=== PATIENT | female | born 1950 | race American Indian/Alaskan Native ===

== ENCOUNTER 2017-09-08 09:32 | Emergency (ER) | payer MEDICARE, BC ==
[2017-09-08 11:04] LABS: BASO % 0.5 % (0.0-2.0); EOS # 0.2 K/uL (0.0-0.7); EOS % 2.6 % (0.0-4.0); HEMATOCRIT 40.2 % (34.0-47.0); LYMPH # 2.4 K/uL (1.0-4.3); LYMPH % 31.8 % (20.0-40.0); MEAN CELL VOLUME 79.3 fL (81.0-99.0); MEAN CORPUSCULAR HEMOGLOBIN 26.1 pg (27.0-31.0); MEAN CORPUSCULAR HGB CONC 32.9 g/dL (33.0-37.0); MONO # 0.7 K/uL (0.0-0.8); MONO % 9.2 % (0.0-10.0); NRBC % 0.2 % (0.0-2.0); RED CELL DISTRIBUTION WIDTH 13.7 % (11.5-14.5); WHITE BLOOD COUNT 7.5 K/uL (4.8-10.8)
[2017-09-08 11:18] LABS: ALB/GLOB RATIO 1.4 (1.0-2.1); ALKALINE PHOSPHATASE 68 U/L (38-126); ALT/SGPT 44 U/L (9-52); AST/SGOT 29 U/L (14-36); BILIRUBIN,TOTAL 0.8 mg/dL (0.2-1.3); BLOOD UREA NITROGEN 18 mg/dL (7-17); CARBON DIOXIDE 31 mmol/L (22-30); CHLORIDE 103 mmol/L (98-107); GFR AFRICAN-AMERICAN > 60; GLUCOSE,RANDOM 123 mg/dL (65-105); POTASSIUM 4.1 mmol/L (3.6-5.2); SODIUM 140 mmol/L (132-148); TOTAL PROTEIN 7.1 g/dL (6.3-8.3)
--- NOTE | 2017-09-08 11:49 | C.PDOC ---
History Of Present Illness 67yo female with history of hypertension, presents to ED requesting evaluation of her high blood pressure. She stats she noticed her blood pressure was elevated a couple days ago while she was at a store. She states today she took 1 out of her 3 blood pressure medications. Of note, patient also reports she has had a persistent dry cough for the past 2-3 days. She denies any fever, chest pain, shortness of breath, headache, blurry vision or double vision. No other complaints. Time Seen by Provider: 09/08/17 10:16 Chief Complaint (Nursing): Cough, Cold, Congestion History Per: Patient History/Exam Limitations: no limitations Onset/Duration Of Symptoms: Days Current Symptoms Are (Timing): Still Present Past Medical History Reviewed: Historical Data, Nursing Documentation, Vital Signs Vital Signs: Last Vital Signs Temp 98.6 F 09/08/17 12:26 Pulse 55 L 09/08/17 12:26 Resp 18 09/08/17 12:26 BP 165/81 H 09/08/17 12:26 Pulse Ox 99 09/08/17 12:26 - Medical History PMH: Arthritis, Diabetes, GERD, HTN, Hypercholesterolemia Surgical History: Appendectomy - [facility] Procedures OTHER SKIN & SUBQ I D (10/07/14) Family History: States: Unknown Family Hx - Social History Hx Tobacco Use: No Hx Alcohol Use: No Hx Substance Use: No - Immunization History Hx Tetanus Toxoid Vaccination: No Hx Influenza Vaccination: No Hx Pneumococcal Vaccination: No Review Of Systems Except As Marked, All Systems Reviewed And Found Negative. Constitutional: Negative for: Fever Eyes: Negative for: Vision Change Cardiovascular: Positive for: Other (elevated blood pressure). Negative for: Chest Pain Respiratory: Negative for: Shortness of Breath Neurological: Negative for: Headache Physical Exam - Physical Exam Appears: Non-toxic Skin: Normal Color Head: Atraumatic, Normacephalic Neck: Supple Cardiovascular: Rhythm Regular Respiratory: Normal Breath Sounds Gastrointestinal/Abdominal: Soft, No Tenderness Back: Normal Inspection Extremity: Normal ROM, Swelling (trace lower extremities edema, bilaterally.) Neurological/Psych: Oriented x3, Normal Speech, Normal Cognition ED Course And Treatment - Laboratory Results Result Diagrams: 09/08/17 10:59 09/08/17 10:59 ECG: Interpreted By Me, Viewed By Me ECG Rhythm: Sinus Rhythm Interpretation Of ECG: Normal axis, normal intervals. Rate From EC O2 Sat by Pulse Oximetry: 100 (RA) Pulse Ox Interpretation: Normal Medical Decision Making Medical Decision Making: Plan: -- Patient took the remaining 2 blood pressure medication, reports feeling better. Will re-evaluate later. -- Labs -- EKG -- CXR Disposition - Disposition Referrals: Tr Lyons MD [Staff Provider] - Disposition: HOME/ ROUTINE Disposition Time: 12:00 Condition: IMPROVED Additional Instructions: Thank you for letting us take care of you today. The emergency medical care you received today was directed at your acute symptoms. If you were prescribed any medication, please fill it and take as directed. It may take several days for your symptoms to resolve. Return to the Emergency Department if your symptoms worsen, do not improve, or if you have any other problems. Please contact your doctor or call one of the physicians/clinics you have been referred to that are listed on the Patient Visit Information form that is included in your discharge packet. Bring any paperwork you were given at discharge with you along with any medications you are taking to your follow up visit. Our treatment cannot replace ongoing medical care by a primary care provider (PCP) outside of the emergency department. Thank you for allowing the [facility] team to be part of your care today. Follow up with your doctor in 1-2 days for re-evaluation and management. Instructions: Hypertension (ED) Forms: [employer] (French) - Clinical Impression Clinical Impression: Hypertension - Scribe Statement The provider has reviewed the documentation as recorded by the Reggie Leung Provider Attestation: All medical record entries made by the Natalyaibalicia were at my direction and personally dictated by me. I have reviewed the chart and agree that the record accurately reflects my personal performance of the history, physical exam, medical decision making, and the department course for this patient. I have also personally directed, reviewed, and agree with the discharge instructions and disposition.
--- NOTE | 2017-09-08 11:57 | RAD ---
Chest x-ray two views History: Cough. Comparison: None available. Findings: Mild venous congestion. Tortuous ectatic aorta. Mild cardiomegaly. Degenerative changes in the spine and shoulders. Impression: Mild venous congestion. Tortuous ectatic aorta. Mild cardiomegaly.
[2017-09-08 12:26] VITALS: PULSE 55; RESP 18; TEMP 98.6
[2017-09-08 12:29] VITALS: BP 165/81
[2017-09-08 18:22] VITALS: O2SAT 100
--- NOTE | 2017-09-09 18:30 | CARD ---
APPROVED REPORT EKG Measurement Heart [id number] <Conclusion> Sinus bradycardia with sinus arrhythmia Nonspecific T wave abnormality Abnormal ECG
== END 2017-09-08 12:38 | disposition home or self-care (01) ==
LOC: C.ER 09:32
DX: I10 Essential (primary) hypertension (principal); E11.9 Type 2 diabetes mellitus without complications; E78.00 Pure hypercholesterolemia, unspecified

== ENCOUNTER 2018-03-28 12:31 | Emergency (ER) | payer MEDICARE, BC ==
[2018-03-28 12:46] VITALS: BMI 33.3
[2018-03-28 12:48] VITALS: BP 158/90; PULSE 64; RESP 18; TEMP 98.9; O2SAT 100
--- NOTE | 2018-03-28 13:50 | C.PDOC ---
History Of Present Illness 67 year old female presents to the ER with a complaint of left ankle pain intermittently for the past 1 week. Patient reports having a Hx of swollen ankles for quite some time now. Patient states it hurts when she tries to walk, she has been applying ice and taking tylenol with mild relief. Denies injury, fever. weakness, or numbness. Time Seen by Provider: 03/28/18 12:54 Chief Complaint (Nursing): Lower Extremity Problem/Injury History Per: Patient History/Exam Limitations: no limitations Onset/Duration Of Symptoms: Days, Intermittent Episodes Current Symptoms Are (Timing): Still Present Recent travel outside of the [place]: No Past Medical History Reviewed: Historical Data, Nursing Documentation, Vital Signs Vital Signs: Last Vital Signs Temp 98.9 F 03/28/18 12:46 Pulse 64 03/28/18 12:46 Resp 18 03/28/18 12:46 BP 158/90 H 03/28/18 12:46 Pulse Ox 100 03/28/18 14:33 - Medical History PMH: Arthritis, Diabetes, GERD, HTN Surgical History: Appendectomy - [facility] Procedures OTHER SKIN & SUBQ I D (10/07/14) Family History: States: Unknown Family Hx - Social History Hx Tobacco Use: No Hx Alcohol Use: No Hx Substance Use: No - Immunization History Hx Tetanus Toxoid Vaccination: No Hx Influenza Vaccination: No Hx Pneumococcal Vaccination: No Review Of Systems Constitutional: Negative for: Fever Musculoskeletal: Positive for: Foot Pain Neurological: Negative for: Weakness, Numbness Physical Exam - Physical Exam Appears: Non-toxic Skin: Normal Color, Warm, Dry Head: Atraumatic, Normacephalic Eye(s): bilateral: Normal Inspection Oral Mucosa: Moist Chest: Symmetrical, No Tenderness Cardiovascular: Rhythm Regular Respiratory: Normal Breath Sounds, No Rales, No Rhonchi, No Wheezing Gastrointestinal/Abdominal: Soft, No Tenderness Extremity: Normal ROM (x4), Pedal Edema (+1 bilateral), No Calf Tenderness, Capillary Refill (<2 seconds) Pulses: Left Dorsalis Pedis: Normal, Right Dorsalis Pedis: Normal Neurological/Psych: Oriented x3, Normal Speech, Normal Motor, Normal Sensation Gait: Steady ED Course And Treatment O2 Sat by Pulse Oximetry: 100 (Left ankle x-ray) Pulse Ox Interpretation: Normal - Other Rad Left ankle x-ray X-Ray: Interpreted by Me, Viewed By Me Interpretation: No acute fractures or dislocation. Medical Decision Making Medical Decision Making: Left ankle x-ray, results were negative. The patient has normal pulses and equal calf and ankle sizes. Patient is resting comfortably in the ER in no distress, she is ambulatory with steady gait, will discharge home with instructions to follow up with PMD. Disposition - Disposition Referrals: Podiatry Clinic [Outside] [facility] [Outside] Disposition: HOME/ ROUTINE Disposition Time: 14:27 Condition: STABLE Additional Instructions: Follow up with the medical doctor within 1-2 days without fail. Return if worsened. Prescriptions: Acetaminophen [Tylenol] 325 mg PO Q6 PRN #30 tab PRN Reason: Pain, Mild (1-3) Ibuprofen [Motrin] 1 tab PO TID PRN #30 tab PRN Reason: Pain Instructions: Ankle Sprain Forms: [employer] (Maltese) - Clinical Impression Clinical Impression: Ankle pain - PA / SOLID FIBER PASTER OPERATOR / Resident Statement MD/DO has reviewed & agrees with the documentation as recorded. - Scribe Statement The provider has reviewed the documentation as recorded by the Scribalicia Potter All medical record entries made by the Scribalicia were at my direction and personally dictated by me. I have reviewed the chart and agree that the record accurately reflects my personal performance of the history, physical exam, medical decision making, and the department course for this patient. I have also personally directed, reviewed, and agree with the discharge instructions and disposition.
--- NOTE | 2018-03-28 15:28 | RAD ---
PROCEDURE: Left Ankle Radiographs. HISTORY: ankle pain, medial aspect COMPARISON: Correlation made with radiographs of the right ankle dated FINDINGS: BONES: No evidence of acute displaced fracture nor dislocation. 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 SOFT TISSUES: Bilateral soft tissue swelling medial greater than lateral Mild vascular calcifications are also present. OTHER FINDINGS: None. IMPRESSION: No evidence of acute displaced fracture nor dislocation. Bilateral soft tissue swelling medial greater than lateral
== END 2018-03-28 14:42 | disposition home or self-care (01) ==
LOC: C.ER 12:31
DX: M25.572 Pain in left ankle and joints of left foot (principal)

== ENCOUNTER 2018-08-26 09:25 | Emergency (ER) | payer MEDICARE, BC ==
[2018-08-26 09:41] VITALS: BMI 31.6
[2018-08-26 09:48] VITALS: BP 148/85; TEMP 97.8
[2018-08-26 09:55] VITALS: PULSE 55; RESP 16; O2SAT 95
--- NOTE | 2018-08-26 09:57 | C.PDOC ---
History Of Present Illness 68 year old female presents to the ED for evaluation of back pain after she tripped and fell at home prior to arrival. Patient reports a contusion to her left posterior thorax. She denies pain at the time. Patient denies head injury, LOC, urinary/bowel incontinence, extremity numbness/weakness. Time Seen by Provider: 08/26/18 09:53 Chief Complaint (Nursing): Back Pain History Per: Patient History/Exam Limitations: no limitations Onset/Duration Of Symptoms: Hrs Current Symptoms Are (Timing): Still Present Additional History Per: Patient Past Medical History Reviewed: Historical Data, Nursing Documentation, Vital Signs Vital Signs: Last Vital Signs Temp 97.8 F 08/26/18 09:53 Pulse 55 L 08/26/18 09:53 Resp 16 08/26/18 09:53 BP 148/85 08/26/18 09:53 Pulse Ox 95 08/26/18 09:53 - Medical History PMH: Arthritis, Diabetes, GERD, HTN Denies: Hypercholesterolemia (PT DENIES) Surgical History: Appendectomy - [facility] Procedures OTHER SKIN & SUBQ I D (10/07/14) Family History: States: Unknown Family Hx - Social History Hx Tobacco Use: No Hx Alcohol Use: No Hx Substance Use: No - Immunization History Hx Tetanus Toxoid Vaccination: No Hx Influenza Vaccination: No Hx Pneumococcal Vaccination: No Review Of Systems Musculoskeletal: Positive for: Back Pain Neurological: Negative for: Weakness, Numbness, Other (head injury, LOC ) Physical Exam - Physical Exam Appears: Non-toxic, No Acute Distress Skin: Normal Color, Warm, Dry Head: Atraumatic, Normacephalic Eye(s): bilateral: Normal Inspection Back: Other (mild tenderness to left posterior thoracic area on palpation. no point tenderness ) Extremity: Normal ROM, Capillary Refill (less than 2 seconds ) Neurological/Psych: Oriented x3, Normal Speech, Normal Cognition Gait: Steady ED Course And Treatment O2 Sat by Pulse Oximetry: 95 (on RA) Pulse Ox Interpretation: Normal Progress Note: Motrin PO given. On reassessment, patient is resting comfortably, showing no signs of distress and reports an improvement in her pain. Patient is ambulatory in the ED with a steady gait and is stable for discharge. She is advised to follow up with her PMD within 1-2 days for further evaluation. Medical Decision Making Medical Decision Making: ? mild contusion to L lateral back area, no wound no pain @ time of fall Unclear how she fell forward with contusion to L posterior thoracic benign exam motrin/ice Disposition Doctor Will See Patient In The: Office Counseled Patient/Family Regarding: Studies Performed, Diagnosis - Disposition Referrals: Tr Lyons MD [Staff Provider] - Disposition: HOME/ ROUTINE Disposition Time: 09:57 Condition: GOOD Additional Instructions: motrin 400-600 mg every 6 hours as needed ice packs 1/2 hour per hour Instructions: Contusion (DC) Forms: Your Office Agent (Citizen Of [place]) - Clinical Impression Clinical Impression: Contusion of thoracic wall - Scribe Statement The provider has reviewed the documentation as recorded by the Scribe (Rosy Steven) Provider Attestation: All medical record entries made by the Scribe were at my direction and personally dictated by me. I have reviewed the chart and agree that the record accurately reflects my personal performance of the history, physical exam, medical decision making, and the department course for this patient. I have also personally directed, reviewed, and agree with the discharge instructions and disposition.
== END 2018-08-26 10:02 | disposition home or self-care (01) ==
LOC: C.ER 09:25
DX: S20.222A Contusion of left back wall of thorax, initial encounter (principal); W01.0XXA Fall on same level from slipping, tripping and stumbling without subsequent striking against object, initial encounter; Y92.009 Unspecified place in unspecified non-institutional (private) residence as the place of occurrence of the external cause

== ENCOUNTER 2019-01-07 08:27 | Emergency (ER) | payer BC, MEDICARE ==
[2019-01-07 08:31] VITALS: BMI 31.4
[2019-01-07 08:34] VITALS: O2SAT 100
[2019-01-07 09:43] LABS: BASO % 0.6 % (0.0-2.0); EOS # 0.2 K/uL (0.0-0.7); EOS % 3.5 % (0.0-4.0); HEMOGLOBIN 13.4 g/dL (11.0-16.0); LYMPH # 1.8 K/uL (1.0-4.3); LYMPH % 33.3 % (20.0-40.0); MEAN CELL VOLUME 80.7 fL (81.0-99.0); MEAN CORPUSCULAR HEMOGLOBIN 26.2 pg (27.0-31.0); MEAN CORPUSCULAR HGB CONC 32.4 g/dL (33.0-37.0); MEAN PLATELET VOLUME 9.6 fL (7.2-11.7); MONO # 0.5 K/uL (0.0-0.8); MONO % 8.9 % (0.0-10.0); NEUT % 53.7 % (50.0-75.0); NRBC % 0.2 % (0.0-2.0); RBC 5.11 Mil/uL (3.80-5.20); RED CELL DISTRIBUTION WIDTH 15.2 % (11.5-14.5); WHITE BLOOD COUNT 5.5 K/uL (4.8-10.8)
[2019-01-07 09:49] LABS: ALB/GLOB RATIO 1.5 (1.0-2.1); ALBUMIN 4.2 g/dL (3.5-5.0); ALT/SGPT 28 U/L (9-52); AST/SGOT 40 U/L (14-36); BLOOD UREA NITROGEN 19 mg/dL (7-17); CALCIUM 9.8 mg/dl (8.6-10.4); GFR NON-AFRICAN AMERICAN 55
--- NOTE | 2019-01-07 10:19 | C.PDOC ---
History Of Present Illness 68 year old female presents to ED with complaint of rash to her bilateral legs for 1 month. Patient states that she started to use a new lotion. She states that at night she complains of pruritus. She has an appointment with dermatol ogist on January 26. Patient denies SOB, difficulty swallowing, swelling, and change in voice. Time Seen by Provider: 01/07/19 08:38 Chief Complaint (Nursing): Abnormal Skin Integrity History Per: Patient History/Exam Limitations: no limitations Onset/Duration Of Symptoms: Other (1 month) Current Symptoms Are (Timing): Still Present Location Of Injury: Right: Leg (rash), Left: Leg Quality Of Symptoms: Itching Past Medical History Reviewed: Historical Data, Nursing Documentation, Vital Signs Vital Signs: Last Vital Signs Temp 99.1 F 01/07/19 08:30 Pulse 52 L 01/07/19 08:30 Resp 18 01/07/19 08:30 BP 149/83 01/07/19 08:30 Pulse Ox 100 01/07/19 08:30 - Medical History PMH: Arthritis, Diabetes, GERD, HTN Denies: Hypercholesterolemia (PT DENIES) Surgical History: Appendectomy - [facility] Procedures OTHER SKIN & SUBQ I D (10/07/14) Family History: States: Unknown Family Hx - Social History Hx Tobacco Use: No Hx Alcohol Use: No Hx Substance Use: No - Immunization History Hx Tetanus Toxoid Vaccination: No Hx Influenza Vaccination: No Hx Pneumococcal Vaccination: No Review Of Systems Constitutional: Negative for: Fever, Weakness ENT: Positive for: Other (change in voice). Negative for: Mouth Swelling, Th roat Swelling Respiratory: Negative for: Shortness of Breath, Wheezing Skin: Positive for: Other (rash to the bilateral lower extremities) Neurological: Negative for: Weakness, Numbness Physical Exam - Physical Exam Appears: Non-toxic, No Acute Distress Skin: Rash (erythematous waves to the bilateral lower extremities, two of them r ough with grayish discoloration in the center; one on her lower abdomen ) Head: Atraumatic, Normacephalic Neck: Normal ROM, Supple Chest: Symmetrical, No Deformity Cardiovascular: Rhythm Regular, No Murmur Respiratory: No Accessory Muscle Use, No Rales, No Rhonchi, No Wheezing Gastrointestinal/Abdominal: Soft, No Tenderness Extremity: Capillary Refill (<2 seconds) Neurological/Psych: Oriented x3, Normal Speech, Normal Cognition, Normal Sensation ED Course And Treatment - Laboratory Results Result Diagrams: 01/07/19 09:31 01/07/19 09:31 Lab Results: Total Bilirubin 0.5 mg/dL (0.2-1.3) 01/07/19 09:31 AST 40 U/L (14-36) H D 01/07/19 09:31 ALT 28 U/L (9-52) 01/07/19 09:31 Alkaline Phosphatase 76 U/L (38-126) 01/07/19 09:31 Total Protein 7.0 g/dL (6.3-8.3) 01/07/19 09:31 Albumin 4.2 g/dL (3.5-5.0) 01/07/19 09:31 Globulin 2.8 gm/dL (2.2-3.9) 01/07/19 09:31 Albumin/Globulin Ratio 1.5 (1.0-2.1) 01/07/19 09:31 O2 Sat by Pulse Oximetry: 100 (in RA) Progress Note: Patient evaluated at bedside by ER attending Dr. Ramos, who recommeneded that patient start with lotrisone cream. Patient had CMP and CBC ordered with no significant changes. Patient discharged home with dermatology follow-up. Disposition - Disposition Disposition: HOME/ ROUTINE Disposition Time: 10:15 Condition: STABLE Additional Instructions: Follow up with integration technician as schedule. Return to ED if feel worse. Prescriptions: Clotrimazole/Betamethasone [Lotrisone] 1 appl EXT BID #45 g Instructions: Skin Rash (DC) Forms: [facility] (Liberian) - Clinical Impression Clinical Impression: Skin rash - PA / PARIMUTUEL CLERK / Resident Statement MD/DO has reviewed & agrees with the documentation as recorded. (Erika Da Silva) - Scribe Statement The provider has reviewed the documentation as recorded by the Scribe (Erika Da Silva) All medical record entries made by the Scribe were at my direction and personally dictated by me. I have reviewed the chart and agree that the record accurately reflects my personal performance of the history, physical exam, medical decision making, and the department course for this patient. I have also personally directed, reviewed, and agree with the discharge instructions and disposition.
[2019-01-07 10:40] VITALS: BP 146/71; PULSE 51; RESP 17; TEMP 98.6
== END 2019-01-07 10:39 | disposition home or self-care (01) ==
LOC: C.ER 08:27
DX: R21 Rash and other nonspecific skin eruption (principal)